=== PATIENT | male | born 1990 | race African-American/Black ===

== ENCOUNTER 2020-02-28 06:46 | Emergency (ER) | payer OTHER ==
[~2020-02-28] VITALS: Ht 187.9 cm; Wt 109.1 kg
[2020-02-28] MEDS ORDERED: IBUP-1780 PO (06:56)
--- NOTE | 2020-02-28 06:58 | ED General ---
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 Denies any injury or previous occurrence of similar pain. Denies Chest pain, discomfort or shortness of air. Brought in by EMS after his "work" told him not to drive if he was having pain moving his left arm. Determined not safe to drive a truck by his work. Allergies and Home Medications Allergies Coded Allergies: No Known Drug Allergies (Unverified , 02/28/20) Home Medications Ibuprofen 800 Mg Tablet, 800 MG PO Q8H PRN for PAIN Prescribed by: GEOVANNY MARIE on 02/28/20 0656 Patient Home Medication List Home Medication List Reviewed: Yes Review of Systems Review of Systems Constitutional: no symptoms reported EENTM: no symptoms reported Respiratory: No cough, No short of breath, No stridor, No wheezing Cardiovascular: No chest pain, No edema, No Hx of Intervention, No palpitations, No syncope, No vascular heart diseas Gastrointestinal: No abdominal pain, No nausea, No vomiting Musculoskeletal: see HPI, back pain; No joint pain, No joint swelling; muscle pain; No muscle weakness, No neck pain Skin: No change in color, No lesions, No rash Psychiatric/Neurological: Denies Numbness, Denies Paresthesia Past [id number]-[id number] Hx Past Med/Social Hx: Reviewed Nursing Past Med/Soc Hx Patient Social History Recent Foreign Travel: No Contact w/Someone Who Travel: No Physical Exam Vital Signs Vital Signs - First Documented 02/28/20 06:59 Temp 37.0 Pulse 73 Resp 20 B/P (MAP) 141/82 (101) Pulse Ox 97 O2 Delivery Room Air Capillary Refill : Height, Weight, BMI Height: '" Weight: lbs. oz. kg; BMI Method: General Appearance: No Apparent Distress, WD/WN Neck: Full Range of Motion, Normal Inspection, Non Tender, Supple Respiratory: Chest Non Tender, Lungs Clear Cardiovascular: Regular Rate, Rhythm, No Edema, No Gallop, No JVD, Normal Peripheral Pulses Gastrointestinal: Non Tender, Soft Back: Normal Inspection, No CVA Tenderness, No Vertebral Tenderness, Muscle Spasm (left upper trapez and scapular ms. Trigger points-) Extremity: Normal Capillary Refill, Normal Inspection; No Swelling Neurologic/Psychiatric: Alert, Oriented x3, No Motor/Sensory Deficits, Normal Mood/Affect; No Motor Weakness, No Sensory Deficit Skin: Normal Color, Warm/Dry Progress/Results/Core Measures Suspected Sepsis SIRS Temperature: Pulse: Respiratory Rate: Blood Pressure / Mean: Results/Orders My Orders Orders - GEOVANNY MARIE DO Ibuprofen Tablet (Motrin Tablet) (02/28/20 07:00) Vital Signs/I&O 02/28/20 06:59 Temp 37.0 Pulse 73 Resp 20 B/P (MAP) 141/82 (101) Pulse Ox 97 O2 Delivery Room Air Capillary Refill : Departure Impression Primary Impression: Muscle strain of scapular region Qualified Codes: S46.912A - Strain of unspecified muscle, fascia and tendon at shoulder and upper arm level, left arm, initial encounter Disposition: 01 HOME, SELF-CARE Condition: Stable Departure-Patient Inst. Decision time for Depature: 06:56 Referrals: NO,LOCAL PHYSICIAN (PCP/Family) Primary Care Physician Patient Instructions: Back Muscle Strain (DC) Add. Discharge Instructions: Follow up with your Worker's Compensation doctor tomorrow for further evaluation, work restrictions and return to work planning. Scripts Ibuprofen (Ibuprofen) 800 Mg Tablet 800 MG PO Q8H PRN for PAIN, #30 TAB 0 Refills Prov: GEOVANNY MARIE DO 02/28/20 GEOVANNY MARIE DO Feb 28, 2020 06:58
[2020-02-28] MEDS ORDERED: IBUPROFEN 800 MG (MOTRIN) TAB PO ONE (07:00)
--- NOTE | 2020-02-28 09:12 | NUR ---
0730: Called patient's [employer] company to ascertain what they require for workman's comp. Office staff states they will call back with the information shortly. 0830: No call received from company. Called office again, staff states they will call back shortly.
--- NOTE | 2020-02-28 09:30 | NUR ---
Called patient's employer again for information as to what they need for work comp. Staff states they will again reach out to safety department.
[2020-02-28 11:00] VITALS: BP 138/75
== END 2020-02-28 11:37 | disposition home or self-care (01) ==
LOC: ER FS 06:49
DX: S46.912A Strain of unspecified muscle, fascia and tendon at shoulder and upper arm level, left arm, initial encounter (principal); X50.0XXA Overexertion from strenuous movement or load, initial encounter; Y92.59 Other trade areas as the place of occurrence of the external cause; Y99.0 Civilian activity done for income or pay
CPT/HCPCS: 99283